=== PATIENT | female | born 1960 | race Caucasian/White ===

== ENCOUNTER → 2018-07-10 09:06 | Outpatient (CLI) | payer BC, SELFPAY | PROVIDERS: Family Provider Nurse Practitioner Family; PCP Nurse Practitioner Family; Visit Provider Nurse Practitioner Family | DX: Z12.31 Encounter for screening mammogram for malignant neoplasm of breast (principal) ==

== ENCOUNTER → 2019-12-31 12:40 | Outpatient (CLI) | payer BC, SELFPAY ==
--- NOTE | 2019-12-31 12:43 | MM_ITS ---
PROCEDURE: MM DIG SCREENING MAMM BI W/CAD Digital Breast Tomosynthesis Included CLINICAL INDICATION: SCREENING There is no personal or family history of breast cancer. COMPARISON: No exams were available for comparison TECHNIQUE: Standard CC and MLO images and 3D Tomosynthesis was obtained. R2 CAD reviewed. FINDINGS: Minimal to moderate scattered fibroglandular densities are seen throughout both breast on a background of fatty breast parenchyma. There couple of benign-appearing calcifications right breast. There is no suspicious lesion and no suspicious microcalcifications. There are small nodes in both axilla. Grzegorz images were reviewed IMPRESSION: Fibrofatty parenchyma with no suspicious lesions seen BI-RAD Category: 2 Benign Finding(s) FOLLOW-UP: 1YR 1 Year Follow-up (A letter has been sent to the patient regarding results of the study.) Dictated by: Dr. Alfonso Manrique MD 01/15/2020 09:[address] Alfonso Manrique MD in [facility] 01/15/2020 09:12
== END ==
PROVIDERS: PCP Nurse Practitioner Family; Visit Provider Nurse Practitioner Family
DX: Z12.31 Encounter for screening mammogram for malignant neoplasm of breast (principal)
CPT/HCPCS: 77063; 77067

== ENCOUNTER → 2021-08-24 15:41 | Outpatient (CLI) | payer BC, SELFPAY ==
--- NOTE | 2021-08-24 15:43 | MM_ITS ---
PROCEDURE INFORMATION: Exam: MG Bilateral Screening 3D Mammography Exam date and time: 08/24/2021 3:43 PM Age: 61 years old Clinical indication: Encounter for screening mammogram for malignant neoplasm of breast TECHNIQUE: Imaging protocol: Bilateral screening tomosynthesis and 2D mammography including computer-aided detection (CAD) when performed. COMPARISON: MG MM DIG SCREENING MAMM BI W/CAD 12/31/2019 12:56 PM FINDINGS: MAMMOGRAPHY: Breast composition: The breast tissue is composed of scattered areas of fibroglandular density. Mass: None. Architectural distortion: None. Calcifications: No suspicious calcifications. Asymmetric density: None. Skin thickening: None. Axillary adenopathy: None. IMPRESSION: No mammographic evidence of malignancy. Annual screening is recommended unless otherwise clinically indicated. ASSESSMENT: BI-RADS Category 1: Negative
== END ==
PROVIDERS: PCP Nurse Practitioner Family; Visit Provider Nurse Practitioner Family
DX: Z12.31 Encounter for screening mammogram for malignant neoplasm of breast (principal)
CPT/HCPCS: 77063; 77067

== ENCOUNTER 2021-11-19 09:00 | Outpatient (RCR) | payer BC, SELFPAY | END 2021-12-09 07:05 | disposition home or self-care (01) | LOC: PT.CARL 09:00 | PROVIDERS: PCP Nurse Practitioner Family; Visit Provider Orthopaedic Surgery | DX: S43.102A Unspecified dislocation of left acromioclavicular joint, initial encounter (principal) | CPT/HCPCS: 97010; 97014; 97110; 97140; 97163; G0283 ==

== ENCOUNTER → 2022-09-06 09:43 | Outpatient (CLI) | payer BC, SELFPAY ==
--- NOTE | 2022-09-06 09:48 | MM_ITS ---
PROCEDURE INFORMATION: Exam: MG Bilateral Screening 3D Mammography Exam date and time: 09/06/2022 9:51 AM Age: 62 years old Clinical indication: Screening examination. No family history of breast cancer. TECHNIQUE: Imaging protocol: Bilateral Screening tomosynthesis and 2D mammography including computer-aided detection (CAD) when performed. COMPARISON: 1. MG MM DIG SCREENING MAMM BI W/CAD 08/24/2021 3:53 PM 2. MG MM DIG SCREENING MAMM BI W/CAD 12/31/2019 12:56 PM FINDINGS: MAMMOGRAPHY: Breast composition: There are scattered areas of fibroglandular density. Mass: None. Architectural distortion: None. Calcifications: No suspicious calcifications. Asymmetric density: None. Skin thickening: None. Axillary adenopathy: None. IMPRESSION: No mammographic evidence of malignancy. Annual screening is recommended unless otherwise clinically indicated. ASSESSMENT: BI-RADS Category 1: Negative
== END ==
PROVIDERS: PCP Nurse Practitioner Family; Visit Provider Nurse Practitioner Family
DX: Z12.31 Encounter for screening mammogram for malignant neoplasm of breast (principal)
CPT/HCPCS: 77063; 77067

== ENCOUNTER 2024-02-13 10:03 | Outpatient (CLI) | payer BC, SELFPAY ==
--- NOTE | 2024-02-13 10:07 | MM_ITS ---
PROCEDURE INFORMATION: Exam: MG Bilateral Screening 3D Mammography Exam date and time: 02/13/2024 9:52 AM Age: 63 years old Clinical indication: Screening mammogram. TECHNIQUE: Imaging protocol: Bilateral Screening tomosynthesis and 2D mammography including computer-aided detection (CAD) when performed. COMPARISON: 1. MG MM DIG SCREENING MAMM BI W/CAD 09/06/2022 9:51 AM 2. MG MM DIG SCREENING MAMM BI W/CAD 08/24/2021 3:53 PM 3. MG MM DIG SCREENING MAMM BI W/CAD 12/31/2019 12:56 PM FINDINGS: MAMMOGRAPHY: Breast composition: There are scattered areas of fibroglandular density. Mass: None. Architectural distortion: No new or suspicious architectural distortion. Calcifications: No new or suspicious calcifications are present Asymmetric density: No new or suspicious asymmetric density is present Skin thickening: None. Axillary adenopathy: None. IMPRESSION: No mammographic evidence of malignancy. Recommend annual screening mammography unless otherwise clinically indicated. ASSESSMENT: BI-RADS category 1: Negative.
== END 2024-02-13 23:59 | disposition home or self-care (01) ==
LOC: RAD 10:04
PROVIDERS: PCP Nurse Practitioner Family; Visit Provider Nurse Practitioner Family
DX: Z12.31 Encounter for screening mammogram for malignant neoplasm of breast (principal)
CPT/HCPCS: 77063; 77067

== ENCOUNTER 2024-02-20 20:22 | Emergency (ER) | payer BC, SELFPAY ==
[2024-02-20 20:25] VITALS: BP 117/82; PULSE 85; RESP 17; TEMP 36.9; O2SAT 96; BMI 25.7
--- NOTE | 2024-02-20 20:49 | PC.NURSE ---
She refuses to give any medical or surgical hx. She states, I don't wanna do all this. I just want this looked at. Tell them I'm incapacitated, I can't talk, it has nothing to do with this.
--- NOTE | 2024-02-20 21:12 | PC.NURSE ---
Received a call from registration that patient walked out and told them no one was doing anything for me. They took my vitals and then left. Patient was here for a possible spider bite during an influx of patients to the department. Patient was next to be seen by a provider. Unable to reach patient on her phone number. Patient NAD, VSS while here.
[2024-02-20 21:14] VITALS: BP 0/0; PULSE 0; RESP 0; TEMP -17.7; TEMP 0
== END 2024-02-20 21:14 | disposition left against medical advice (07) ==
PROVIDERS: Emergency Provider Emergency Medicine; PCP Nurse Practitioner Family
DX: Z53.21 Procedure and treatment not carried out due to patient leaving prior to being seen by health care provider (principal)
CPT/HCPCS: 99211